=== PATIENT | male | born 1940 | race Caucasian/White ===

== ENCOUNTER 2020-01-24 08:37 | Day surgery (SDC) | payer MEDICARE ==
[~2020-01-24] VITALS: Ht 165.1 cm; Wt 88.7 kg
[~2020-01-24 08:37] MED LIST: ATEN25 PO; LATANOPROST2.5 M1 BOTHEYES; Lisinopril-Hct1 EAC4 PO; TAMS.4ER PO
--- NOTE | 2020-01-24 09:15 | NUR ---
PT ADMITTED TO [facility]. AGREES WITH PLANNED SURGERY. LUNG SOUNDS CLEAR. NOZIN TO NARES BILATERALLY.
--- NOTE | 2020-01-24 14:12 | NUR ---
1245 ADMIT PT ARRIVED FROM PACU ALERT, ORIENTED. PT REPORTS SLIGHT NUMBNESS BELOW LEVEL OF KNEES BILAT. PT ABLE TO PERFORM ANKLE PUMPS AND WIGGLE TOES
--- NOTE | 2020-01-25 05:00 | NUR ---
SHIFT SUMMARY LYING IN SEMI FOWLERS WITH EYES CLOSED. HAS USED URINAL AT BEDSIDE AND AMBULATED TO BATHROOM TO USER COMMODE. GOOD URINARY OUT PUT NOTED, NO BM. PAIN MANAGED WITH SCHEDULED TORADOL AND TYLENOL. RIGHT HIP DRESSING IS C/D/I. DENIES N/T TO RLE, GOOD DISTAL CAP REFILL NOTED. REPORTS GOOD SENSATION. POLAR TERRELL IN PLACE. SL PIV TO LEFT FA IS PATENT, FLUSHING WITH EASE. DENIES FURTHER NEEDS OR WANTS AT THIS TIME. SAFETY MEASURES IN PLACE. WILL CONTINUE TO MONITOR AND GIVE HAND OFF TO ONCOMING SHIFT USING SBAR.
[2020-01-25 05:08] LABS: BASOPHILS ABSOLUTE AUTO 0.05 K/mm3 (0.00-0.23); BASOPHILS PERCENT AUTO 0 % (0-2); EOSINOPHILS ABSOLUTE AUTO 0.01 K/mm3 (0.00-0.68); EOSINOPHILS PERCENT AUTO 0 % (0-6); Hematocrit 38.8 % (37.0-53.0); Hemoglobin 12.9 g/dL (13.5-17.5); IMMATURE GRAN ABSOLUTE AUTO 0.04 K/mm3 (0.00-0.10); IMMATURE GRAN PERCENT AUTO 0 % (0-1); LYMPHOCYTES ABSOLUTE AUTO 1.76 K/mm3 (0.84-5.20); LYMPHOCYTES PERCENT AUTO 12 % (21-46); MONOCYTES PERCENT AUTO 8 % (4-13); Mean Corpuscular HGB 30.4 pg (26.0-34.0); Mean Corpuscular HGB Conc 33.2 g/dL (31.5-36.5); Mean Corpuscular Volume 92 fL (80-100); Mean Platelet Volume 11.8 fL (9.1-12.4); NEUTROPHILS PERCENT AUTO 79 % (41-73); Platelet Count 220 K/mm3 (150-400); RDW Coefficient Variation 12.6 % (11.7-14.2); RDW Standard Deviation 42.5 fL (35.1-46.3); Red Blood Cell Count 4.24 M/mm3 (4.30-5.90); White Blood Cell Count 14.76 K/mm3 (4.00-11.30)
[2020-01-25 05:30] LABS: Anion Gap 6 mmol/L (6-16); Blood Urea Nitrogen 22 mg/dL (8-24); Bun/Creatinine Ratio 19.5 (12.0-20.0); CO2, Blood 29 mmol/L (21-32); Calcium, Blood 9.3 mg/dL (8.5-10.1); Chloride, Blood 105 mmol/L (98-108); Creatinine, Blood 1.13 mg/dL (0.60-1.20); Glomerular Filtration Rate >60 (60-); Glucose, Blood 126 mg/dL (70-99); Magnesium, Blood 2.1 mg/dL (1.6-2.4); Potassium, Blood 3.6 mmol/L (3.5-5.5); Sodium, Blood 140 mmol/L (136-145)
--- NOTE | 2020-01-25 07:56 | NUR ---
BLOOD PRESSURE PT'S BP IS 100/62. DR. BAH NOTIFIED. PLAN TO HOLD OFF ON ADMINISTERING ZESTRIL AND ORETIC UNTIL BP IS RE-EVALUATED.
[2020-01-25] MEDS ORDERED: Aspir 8181 MG PO (13:57)
[2020-01-25] MEDS ORDERED: OXYC5 PO (14:03)
[2020-01-25] MEDS ORDERED: PROM25 PO (14:05)
--- NOTE | 2020-01-25 15:23 | NUR ---
DISCHARGE PT PROVIDED WITH WRITTEN AND VERBAL DISCHARGE INSTRUCTIONS, PT AND HIS SON REPORTED UNDERSTANDING. DRESSINGS PROVIDED. LILY CALLED TO [facility] IN [place]. PT REPORTED HE HAS SCRIPTS FOR ASPIRIN AND PAIN MEDICATION AT HOME. AWAITING UPDATE TO DISCHARGE SUMMARY AND HOME HEALTH FACE TO FACE FROM DR. BAH. DR. BAH'S OFFICE REMINDED OF NEED FOR UPDATED DISCHARGE [facility] AND HOME HEALTH FACE TO FACE; RUDI ELDER AND GASTON BLAKE NOTIFIED. VSS. PT ESCORTED OUT IN W/C BY THIS RN.
== END 2020-01-25 15:20 | disposition home or self-care (01) ==
LOC: ORSCMMR 08:37 → ORD 10:45 → ORSCMMR 10:45 → SURS 12:38 → ORD 17:15 → SURS 01-25 13:36 → ORSCMMR 01-25 15:20 → SURS 01-25 15:20
PROVIDERS: Orthopaedic Surgery
PROC: 8E0YXBZ Computer Assisted Procedure of Lower Extremity (ICD-10-PCS; principal; 2020-01-24 09:30)
PROC: 0SR90JA Replacement of Right Hip Joint with Synthetic Substitute, Uncemented, Open Approach (ICD-10-PCS; principal; 2020-01-24 09:30)
DX: M16.11 Unilateral primary osteoarthritis, right hip (principal); I10 Essential (primary) hypertension; N18.9 Chronic kidney disease, unspecified; Z79.899 Other long term (current) drug therapy
CPT/HCPCS: 36415; 72170; 80048; 83735; 85025; 88300; 97110; 97116; 97161; 97166; 97530; 97535; A9270; A9270-GY; C1713; C1776; J0171; J0690; J0735; J1100; J1885; J2250; J2370; J2405; J2704; J2795; J3010; J7120

== ENCOUNTER 2022-02-18 07:17 | Day surgery (SDC) | payer MEDICARE ==
[~2022-02-18] VITALS: Ht 167.6 cm; Wt 98.8 kg
[~2022-02-18 07:17] MED LIST changes: +Aspir 8181 MG PO; +OXYC5 PO; +PROM25 PO
== END 2022-02-18 09:14 | disposition home or self-care (01) ==
LOC: ORSCSDS 07:17
PROVIDERS: Ophthalmology
PROC: 08RK3JZ Replacement of Left Lens with Synthetic Substitute, Percutaneous Approach (ICD-10-PCS; principal; 2022-02-18 08:30)
DX: H25.12 Age-related nuclear cataract, left eye (principal); H21.81 Floppy iris syndrome; I10 Essential (primary) hypertension; N40.0 Benign prostatic hyperplasia without lower urinary tract symptoms; E66.9 Obesity, unspecified; Z68.35 Body mass index [BMI] 35.0-35.9, adult; Z79.899 Other long term (current) drug therapy
CPT/HCPCS: 82947; A9270; J2001; J2250; J3301; J7040; V2632